=== PATIENT | male | born 1965 | race Caucasian/White ===

== ENCOUNTER 2017-07-08 04:45 | Outpatient (CLI) | payer MEDICARE, MEDICAID ==
[~2017-07-08 04:45] MED LIST: ALBU18HF2 INH; ASPI-1264 PO; CHLO25TA2 PO; CITA20TA11 PO; CLON-529 PO; FURO-149 PO; HYDR-565 PO; IBUP-1984 PO; INSU300I; LORA1TAB PO; LOSA25TA96 PO; METF1000 PO; METO100T14 PO; NOR5T PO; POTA8TAB3; SITA100T15 PO
== END 2017-07-08 23:59 | disposition home or self-care (01) ==
LOC: DIABETIC 04:45
PROVIDERS: ATTEND Internal Medicine
DX: E11.8 Type 2 diabetes mellitus with unspecified complications (principal); R63.4 Abnormal weight loss; Z71.3 Dietary counseling and surveillance
CPT/HCPCS: G0108

== ENCOUNTER 2017-11-05 00:31 | Outpatient (CLI) | payer MEDICARE, MEDICAID ==
[~2017-11-05 00:31] MED LIST changes: +CITA-278 PO; -CITA20TA11 PO
== END 2017-11-05 23:59 | disposition home or self-care (01) ==
LOC: DIABETIC 00:31
PROVIDERS: ATTEND Internal Medicine
DX: I10 Essential (primary) hypertension (principal); E78.5 Hyperlipidemia, unspecified; E66.9 Obesity, unspecified; E11.9 Type 2 diabetes mellitus without complications; J44.9 Chronic obstructive pulmonary disease, unspecified; Z87.891 Personal history of nicotine dependence
CPT/HCPCS: G0108

== ENCOUNTER 2019-04-04 15:09 | Emergency (ER) | payer MEDICARE, MEDICAID ==
[~2019-04-04] VITALS: Ht 193 cm; Wt 156.0 kg
[~2019-04-04 15:09] MED LIST changes: -CITA-278 PO; +CITA20TA28 PO; +HYDR-4353 PO; -HYDR-565 PO; +LIDOcaine 1% 30ml preserv. free vial ONE
[2019-04-04 15:12] VITALS: BP 188/98
[2019-04-04] MEDS ORDERED: BACDS PO (17:51)
== END 2019-04-04 18:25 | disposition home or self-care (01) ==
LOC: ER 15:10
DX: N49.2 Inflammatory disorders of scrotum (principal); E78.00 Pure hypercholesterolemia, unspecified; I10 Essential (primary) hypertension; I25.2 Old myocardial infarction; E11.9 Type 2 diabetes mellitus without complications; Z88.8 Allergy status to other drugs, medicaments and biological substances; Z79.899 Other long term (current) drug therapy; Z79.82 Long term (current) use of aspirin; Z79.4 Long term (current) use of insulin
CPT/HCPCS: 55100; 99284; J2001

== ENCOUNTER 2019-11-06 11:17 | Emergency (ER) | payer MEDICARE, MEDICAID ==
[~2019-11-06] VITALS: Ht 193 cm; Wt 140.0 kg
[~2019-11-06 11:17] MED LIST changes: -LIDOcaine 1% 30ml preserv. free vial ONE
[2019-11-06] MEDS ORDERED: LIDOcaine 1% W/epiNEPHrine 1:200,000 10ml vial IJ ONE (12:30)
[2019-11-06] MEDS ORDERED: normal saline 1000ML IV soln IVB ONE (12:30)
[2019-11-06] MEDS ORDERED: insulin regular, human 10 units/0.1 ml syringe SQ ONE (12:50)
[2019-11-06] MEDS ORDERED: insulin regular, human U-100 3ml vial - multi-dose SQ ONE (13:05)
[2019-11-06 13:09] LABS: BASOPHILS # (AUTO) 0.1 X10'3 (0-0.2); BASOPHILS % (AUTO) 0.7 % (0-1); EOSINOPHILS # (AUTO) 0.2 X10'3 (0-0.9); EOSINOPHILS % (AUTO) 1.9 % (0-6); HEMATOCRIT 50.7 % (42.0-52.0); HEMOGLOBIN 17.8 g/dl (14.0-17.9); LYMPHOCYTES # (AUTO) 2.4 X10'3 (1.1-4.8); LYMPHOCYTES % (AUTO) 24.4 % (21-51); MEAN CORPUSCULAR HEMOGLOBIN 31.9 PG (27.0-31.0); MEAN CORPUSCULAR HGB CONC 35.1 g/dL (33.0-36.5); MEAN CORPUSCULAR VOLUME 90.9 FL (78-98); MEAN PLATELET VOLUME 8.2 FL (7.4-10.4); MONOCYTES # (AUTO) 0.9 X10'3 (0-0.9); MONOCYTES % (AUTO) 8.8 % (2-12); NEUTROPHILS # (AUTO) 6.4 X10'3 (1.8-7.7); NEUTROPHILS % (AUTO) 64.2 % (42-75); PLATELET COUNT 293 X10'3 (140-440); RED BLOOD COUNT 5.57 X10'6 (4.70-6.10); WHITE BLOOD COUNT 9.9 X10'3 (4.5-11.0)
--- NOTE | 2019-11-06 13:10 | NUR ---
Complete care and report to HERIBERTO Vergara.
[2019-11-06 13:28] LABS: ALANINE AMINOTRANSFERASE 14 U/L (12-78); ALBUMIN 3.2 G/DL (3.4-5.0); ALBUMIN/GLOBULIN RATIO 0.8 (1.1-1.5); ALKALINE PHOSPHATASE 92 IU/L (46-116); ANION GAP 9 (8-16); ASPARTATE AMINO TRANSFERASE 10 U/L (10-37); BILIRUBIN,TOTAL 0.4 MG/DL (0.1-1.0); BLOOD UREA NITROGEN 15 MG/DL (7-18); CHLORIDE 96 MMOL/L (99-107); CREATININE 1.07 MG/DL (0.60-1.10); SODIUM 132 MMOL/L (135-145); TOTAL CARBON DIOXIDE 26.8 MMOL/L (24-32); TOTAL PROTEIN 7.4 G/DL (6.4-8.2); eGFR 72 ML/MIN
--- NOTE | 2019-11-06 13:29 | NUR ---
at bedside doing I and D
[2019-11-06 13:31] LABS: GLUCOSE 535 MG/DL (70-104)
[2019-11-06 13:45] VITALS: BP 153/97
--- NOTE | 2019-11-06 14:18 | NUR ---
at bedside jhon I&D
[2019-11-06] MEDS ORDERED: SULF1TAB49 PO (14:44)
[2019-11-06] MEDS ORDERED: sulfamethoxazole/trimethoprim DS (800/160mg) tablet PO ONE (14:45)
== END 2019-11-06 15:00 | disposition home or self-care (01) ==
LOC: ER 11:18
DX: L02.511 Cutaneous abscess of right hand (principal); E11.65 Type 2 diabetes mellitus with hyperglycemia; E78.00 Pure hypercholesterolemia, unspecified; I10 Essential (primary) hypertension; I25.2 Old myocardial infarction; E11.9 Type 2 diabetes mellitus without complications; F41.9 Anxiety disorder, unspecified; F17.200 Nicotine dependence, unspecified, uncomplicated; Z98.890 Other specified postprocedural states; Z88.8 Allergy status to other drugs, medicaments and biological substances; Z79.82 Long term (current) use of aspirin; Z79.4 Long term (current) use of insulin; Z79.899 Other long term (current) drug therapy
CPT/HCPCS: 26010; 36415; 80053; 82948; 85025; 99283; J1815; J7030